=== PATIENT | male | born 1950 | race Caucasian/White ===

== ENCOUNTER 2018-09-25 11:09 | Inpatient (IN) | payer OTHER ==
[2018-09-25] VITALS (11 sets, daily range): BP systolic 143–177; BP diastolic 78–95
[~2018-09-25] VITALS: Ht 182.9 cm; Wt 99.8 kg
[~2018-09-25 11:09] MED LIST: ceFAZolin 1gm IVPB IVPB ONE; celeBREX 200mg Cap **SURGERY PATIENTS ONLY ORAL ONE; oxyCONTIN 20mg tab ORAL ONE
[2018-09-25] MEDS ORDERED: ADALAT10 MG ORAL (12:18)
[2018-09-25] MEDS ORDERED: LIPITOR20 MG ORAL (12:18)
[2018-09-25] MEDS ORDERED: ZETIA10 MG ORAL (12:18)
[2018-09-25] MEDS ORDERED: AMARYL4 MG ORAL (12:18)
[2018-09-25] MEDS ORDERED: ALLOPURINOL100 M1 ORAL (12:18)
[2018-09-25] MEDS ORDERED: celeBREX 200mg Cap **SURGERY PATIENTS ONLY ORAL ONE (12:35)
[2018-09-25] MEDS ORDERED: oxyCONTIN 20mg tab ORAL ONE (12:35)
--- NOTE | 2018-09-25 14:50 | Operative Note - PDOC ---
Operative Note Operative Note Pre-op Diagnosis: right hip arthritis Procedure: see op report Post-op Diagnosis: same as pre-op plus Operative Findings: consistent w/pre-op dx studies Anesthesia: regional Specimen: none Complications: none Condition: stable Estimated Blood Loss: none Implant(s) used?: Yes Ariel Benites MD September 25, 2018 14:50
--- NOTE | 2018-09-25 14:50 | Pre-Procedure Note/Attestation ---
Pre-Procedure Note/Attestation Complete Prior to Procedure Planned Procedure: right Procedure Narrative: esther Indications for Procedure Pre-Operative Diagnosis: right hip arthritis Attestation I attest that I discussed the nature of the procedure; its benefits; risks and complications; and alternatives (and the risks and benefits of such alternatives ), prior to the procedure, with the patient (or the patient's legal healthcare sales representative). I attest that, if there was a reasonable possibility of needing a blood transfusion, the patient (or the patient's legal healthcare sales representative) was given the [facility] standardized written summary, pursuant to the [place] Blood Safety Act ([place] Health and Safety Code # 1645, as amended). I attest that I re-evaluated the patient just prior to the surgery and that there has been no change in the patient's H&P, except as documented below: Ariel Benites MD September 25, 2018 14:50
[2018-09-25] MEDS ORDERED: Milk of Magnesia 30ml Ud ORAL PRN (15:00)
[2018-09-25] MEDS ORDERED: HYDROmorphone 1mg/ml Carpuject SUBQ PRN (15:00)
[2018-09-25] MEDS ORDERED: LR 1000ml ONE (15:00)
[2018-09-25] MEDS ORDERED: NS Irrig 1000ml ONE (15:00)
[2018-09-25] MEDS ORDERED: oxyCODONE 5mg IR tab ORAL PRN (15:00)
[2018-09-25] MEDS ORDERED: Propofol 200mg/20ml IV ONE ×2 (15:00→15:21)
[2018-09-25] MEDS ORDERED: EPINEPHrine 1mg/1ml Amp ONE (15:15)
[2018-09-25] MEDS ORDERED: Bupivacaine 0.5% Inj 30 ml vial INJ ONE (15:16)
[2018-09-25] MEDS ORDERED: Duramorph PF 5mg/10ml amp ONE ×2 (15:16→15:20)
[2018-09-25] MEDS ORDERED: Kenalog-40 1ml Vial ONE (15:18)
[2018-09-25] MEDS ORDERED: Ketorolac 30mg Inj ONE (15:18)
[2018-09-25] MEDS ORDERED: NeoSporin Gu Irrig 1ml Amp IRRIG ONE ×2 (15:19→16:58)
[2018-09-25] MEDS ORDERED: Bacitracin 50000 Units Vial ONE (15:19)
[2018-09-25] MEDS ORDERED: Sodium Chloride 10ml vial INJ ONE (15:21)
[2018-09-25] MEDS ORDERED: Lidocaine 1% MPF 10mg/ml 5ml ONE (15:21)
[2018-09-25] MEDS ORDERED: Ketamine 500mg Inj ONE (15:21)
[2018-09-25] MEDS ORDERED: ePHEDrine 50mg/ml Inj ONE ×2 (15:50→15:53)
[2018-09-25] MEDS ORDERED: Tranexamic Acid 1,000 MG in NS 65 ML IV ONE (16:00)
[2018-09-25] MEDS ORDERED: LR 1000ml 1,000 ML IVLG SCH (16:01)
[2018-09-25] MEDS ORDERED: Atropine Sulfate 0.4mg/ml inj IVP PRN (16:15)
[2018-09-25] MEDS ORDERED: Meperidine 50mg/ml Inj(FOR RIGORS ONLY) IVP PRN (16:15)
[2018-09-25] MEDS ORDERED: oxyCODONE HCL/Acetaminophen 5/325mg ORAL PRN (16:15)
[2018-09-25] MEDS ORDERED: Hydromorphone 0.5mg/0.5ml inj IVP PRN (16:15)
[2018-09-25] MEDS ORDERED: HYDROcodone/Acetamin 7.5/325 tab ORAL PRN (16:15)
[2018-09-25] MEDS ORDERED: fentaNYL 100 mcg/2 mL IV PRN (16:15)
[2018-09-25] MEDS ORDERED: Midazolam 2mg/2ml Inj IVP PRN (16:15)
[2018-09-25] MEDS ORDERED: LORazepam Inj 2mg/ml 1ml IV PRN (16:15)
[2018-09-25] MEDS ORDERED: Ketorolac 30mg Inj IV PRN ×2 (16:15)
[2018-09-25] MEDS ORDERED: Metoclopramide 10mg/2ml Inj IVP PRN (16:15)
[2018-09-25] MEDS ORDERED: Labetalol 5mg/ml 20ml vial IV PRN (16:15)
[2018-09-25] MEDS ORDERED: DiphenhydrAMINE 50mg/ml Inj IVP PRN (16:15)
[2018-09-25] MEDS ORDERED: HYDROcodone/Acetamin 5/325 tab ORAL PRN (16:15)
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
--- NOTE | 2018-09-25 16:20 | Immediate Post-Op Evaluation ---
Immediate Post-Op Evalulation Immediate Post-Op Evalulation Procedure: R Hip Total Arthroplasty Date of Evaluation: September 25, 2018 Time of Evaluation: 17:34 IV Fluids: 1000 LR Blood Products: 0 Estimated Blood Loss: 75 Urinary Output: 0 Blood Pressure Systolic: 172 Blood Pressure Diastolic: 91 Pulse Rate: 108 Respiratory Rate: 16 O2 Sat by Pulse Oximetry: 100 Temperature (Fahrenheit): 98.4 Pain Score (1-10): 2 Nausea: No Vomiting: No Complications 0 Patient Status: awake, reacts, patent, none Hydration Status: adequate Dru Grams Ancef IV Given Within 1 Hr of Incision: Yes Time Given: 15:46 Last Hutchinson MD September 25, 2018 16:20
--- NOTE | 2018-09-25 16:21 | 48 Hour Post Anesthesia Eval ---
Post Anesthesia Evaluation Procedure: R Hip Total Arthroplasty Date of Evaluation: September 25, 2018 Time of Evaluation: 19:42 Blood Pressure Systolic: 172 0: 98 Pulse Rate: 81 Respiratory Rate: 18 Temperature (Fahrenheit): 98.4 O2 Sat by Pulse Oximetry: 98 Airway: patent Nausea: No Vomiting: No Pain Intensity: 2 Hydration Status: adequate Cardiopulmonary Status: Stable Mental Status/LOC: patient returned to baseline Follow-up Care/Observations: 0 Post-Anesthesia Complications: 0 Follow-up care needed: N/A Last Hutchinson MD September 25, 2018 16:21
[2018-09-25] MEDS ORDERED: Duramorph PF 5mg/10ml amp EPIDUR ONE (16:53)
[2018-09-25] MEDS ORDERED: NS Irrig 2000ml IRRIG ONE (16:54)
[2018-09-25] MEDS ORDERED: Bacitracin 50000 Units Vial IRRIG ONE (16:55)
--- NOTE | 2018-09-25 18:25 | NUR ---
NURSE NOTES: Received patient from Yael Rome, RETAIL INTERIOR DESIGNER. Patient a/o x4, no respiratory discomfort noted. Denies any pain at this time. LR is running at this time. IV is on left hand and intact. Right surgical hip site dressing is dry and intact. is at bed side. Bed in lowest position, call light within reach. Will continue to monitor.
--- NOTE | 2018-09-25 18:50 | NUR ---
NURSE NOTES: Read each home meds to Dr. Romeo and ordered resume home meds, sliding scale low, diabetic diet, clonidine 0.1 mg q4 prn if sbp>150. Noted and carried out. Addendum: 09/25/18 at 2007 by Nettie Lucia RN ADDENDUM BP 161/[address] Romeo was notified.
[2018-09-25] MEDS: Docusate 100mg cap ORAL SCH (19:10)
[2018-09-25] MEDS: D5 1/2NS w/KCl 20mEq 1,000 ML IV SCH (19:31)
--- NOTE | 2018-09-25 19:40 | NUR ---
NURSE NOTES: Report taken from ML Infante. patient is awake and in bed, at bedside. A&Ox4, is hard of hearing, speak directly at patient. O2 sat dropping to mid 80's, patient asymptomatic with no signs of distress, MD notified. No complaints of pain, spinal is wearing off, states that he is feeling the numbness going down. Full motion and sensation in bilateral LE. IV c/d/i and patent, running D51/2NS + 20KCl at 75mls/hr. Celaya c/d/i and patent, draining yellow urine. No skin issues present. Surgical site c/d/i. Continue to monitor, bed in lowest position, call light within reach.
--- NOTE | 2018-09-25 19:41 | NUR ---
HAND-OFF: Report given to ML Espinoza. Patient is stable.
[2018-09-25] MEDS: oxyCONTIN 20mg tab ORAL SCH (20:32)
[2018-09-25] MEDS: NovoLOG Insulin Flexpen SUBQ SCH (20:40)
--- NOTE | 2018-09-25 20:50 | NUR ---
NURSE NOTES: Patient refused insulin. Would not like to take insulin, tries to control his diabetes through diet and other means. Explained the risks and benefits on insulin injections. Blood sugar at 168.
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
[2018-09-26] VITALS: BP 161/89
[2018-09-26] MEDS: ceFAZolin sod 2 GM in D5W 110 ML IV SCH ×2 (00:02→08:08)
[2018-09-26 04:00] VITALS: BP 154/78
[2018-09-26] MEDS: NovoLOG Insulin Flexpen SUBQ SCH ×3 (06:30→16:30)
--- NOTE | 2018-09-26 06:35 | NUR ---
NURSE NOTES: Patients accucheck 255. Refused insulin coverage. Spoke with patient and his about risk and benefit of insulin coverage. They would like to wait until after he eats breakfast to see if his blood sugar decreases. Will endorse to day shift.
--- NOTE | 2018-09-26 07:32 | NUR ---
HAND-OFF: Report given to ML Araujo. Patient is awake with at bedside. VS stable.
--- NOTE | 2018-09-26 07:35 | NUR ---
NURSE NOTES: Patient lying in bed awake. Complain of pain 5/10 on surgical site. Will administer pain medication. Skin intact and dry. Surgical dressing intact and dry. IV dressing intact and dry. Celaya catheter patent and draining well. Bed lowest position. Call light within reach. Will continue to monitor.
[2018-09-26 08:00] VITALS: BP 153/84
[2018-09-26] MEDS: D5 1/2NS w/KCl 20mEq 1,000 ML IV SCH (08:10)
[2018-09-26] MEDS: Docusate 100mg cap ORAL SCH ×2 (08:55→13:16)
[2018-09-26] MEDS: oxyCONTIN 20mg tab ORAL SCH (08:56)
[2018-09-26] MEDS ORDERED: Glimepiride 4mg tab ORAL SCH (09:00)
[2018-09-26] MEDS ORDERED: Atorvastatin 20mg tab ORAL SCH (09:00)
[2018-09-26] MEDS ORDERED: Allopurinol 100mg Tab ORAL SCH (09:00)
--- NOTE | 2018-09-26 09:00 | NUR ---
NURSE NOTES: Spoke to regarding IV fluid and new order received. Order read back and carried out.
[2018-09-26] MEDS ORDERED: 1/2NS w/KCl 20mEq 1000ml 1,000 ML IV SCH (10:00)
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
[2018-09-26 12:00] VITALS: BP 158/78
--- NOTE | 2018-09-26 12:55 | NUR ---
NURSE NOTES: Removed Celaya catheter with 800 ml yellow urine. No complain of pain or discomfort at this time. Patient tolerated procedure well. Will continue to monitor.
[2018-09-26] MEDS ORDERED: PERCOCET 10-321 EAC1 ORAL (12:58)
[2018-09-26] MEDS ORDERED: NAPROXEN500 M2 ORAL (12:59)
[2018-09-26] MEDS ORDERED: NEURONTIN100 MG ORAL (13:00)
[2018-09-26] MEDS ORDERED: ASPIRIN325 MG ORAL (13:01)
--- NOTE | 2018-09-26 14:20 | NUR ---
NURSE NOTES: Patient voided 100 ml yellow urine. No complain of pain or discomfort at this time. Will continue to monitor.
--- NOTE | 2018-09-26 14:52 | NUR ---
PT note PT luigi completed, treatment initiated. Patient was able to ambulate with the FWW; required constant verbal cues for proper gait sequencing and to observe THR precautions. Patient needs PT services to increase his muscle strength to instruct on safe transfers and gait to enable him to be DC'd home. Addendum: 09/26/18 at 1453 by BLANCA ROTH PT Amended: Links added.
[2018-09-26 16:00] VITALS: BP 155/90
--- NOTE | 2018-09-26 16:22 | NUR ---
PT Note Patient will be going to his daughter's house (post [place]) which has low toilets. Recommend for patient to be DC'd home with a raised toilet seat.
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
[2018-09-27] MEDS ORDERED: Enoxaparin 40mg Inj SUBQ SCH (09:00)
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
--- NOTE | 2018-09-28 12:03 | Diagnostic Imaging Report ---
Indication: pain status post right hip replacement Findings: Single AP view of the pelvis was performed. Right total hip arthroplasty noted. Alignment and position appear unremarkable on the single view. Celaya catheter noted. IMPRESSION: Status post right total hip replacement
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
== END 2018-09-26 17:15 | disposition home or self-care (01) | DRG 470 ==
LOC: SDSOVERFLO 11:09 → 3E 18:21
PROC: 0SR90JA Replacement of Right Hip Joint with Synthetic Substitute, Uncemented, Open Approach (ICD-10-PCS; principal; 2018-09-25 14:15)
DX: M16.51 Unilateral post-traumatic osteoarthritis, right hip (principal); E11.9 Type 2 diabetes mellitus without complications; I10 Essential (primary) hypertension; E78.00 Pure hypercholesterolemia, unspecified
CPT/HCPCS: 36415; 72170; 82962; 86850; 86900; 86901; 87081; 94003; 94150; J1815; J2405